=== PATIENT | female | born 1975 | race American Indian/Alaskan Native ===

== ENCOUNTER 2018-04-13 12:13 | Emergency (ER) | payer OTHER ==
--- NOTE | 2018-04-13 12:34 | Emergency Department Report ---
Blank Doc - Documentation Documentation: This is a 43-year-old female that presents with generalized pain and weakness more then a week. Denies any nausea or vomiting. Denies any other complaints or symptoms. This initial assessment/diagnostic orders/clinical plan/treatment(s) is/are subject to change based on patient's health status, clinical progression and re- assessment by fellow clinical providers in the ED. Further treatment and workup at subsequent clinical providers discretion. Patient/guardians urged not to elope from the ED as their condition may be serious if not clinically assessed and managed. Initial orders include: 1- Patient sent to [facility] for further evaluation and treatment 2- labs 2- ua
[2018-04-13 12:35] VITALS: BP 116/76
[2018-04-13 13:26] LABS: Basophils # (Auto) 0.1 K/mm3 (0.0-0.1); Basophils % (Auto) 1.4 % (0.0-1.8); Eosinophils # (Auto) 0.3 K/mm3 (0.0-0.4); Eosinophils % (Auto) 5.3 % (0.0-4.3); Hematocrit 38.5 % (30.3-42.9); Hemoglobin 13.2 gm/dl (10.1-14.3); Lymphocytes # (Auto) 2.1 K/mm3 (1.2-5.4); Mean Corpuscular HGB Conc 34 % (30-34); Mean Corpuscular Volume 91 fl (79-97); Monocytes # (Auto) 0.4 K/mm3 (0.0-0.8); Monocytes % (Auto) 6.6 % (0.0-7.3); Platelet Count 382 K/mm3 (140-440); Red Blood Count 4.24 M/mm3 (3.65-5.03); Red Cell Distribution Width 13.7 % (13.2-15.2)
[2018-04-13 13:33] LABS: Bacteria,Urine 1+ /HPF (Negative); Bilirubin,Urine NEG (Negative); Blood,Urine LG (Negative); Color,Urine Yellow (Yellow); HCG Qualitative,Urine Negative (Negative); Mucus,Urine FEW /HPF; Protein,Urine <15 mg/dL mg/dL (Negative); Urobilinogen,Urine < 2.0 mg/dL (<2.0)
[2018-04-13 13:53] LABS: Alanine Aminotransferase 14 units/L (7-56); Albumin 3.9 g/dL (3.9-5); BUN/Creatinine Ratio 23; Bilirubin,Direct < 0.2 mg/dL (0-0.2); Blood Urea Nitrogen 9 mg/dL (7-17); Calcium 8.6 mg/dL (8.4-10.2); Hemolysis Index 5
--- NOTE | 2018-04-13 14:07 | Emergency Department Report ---
ED General Adult HPI - General Chief complaint: Abdominal Pain Stated complaint: HEAD/NECK/BACK PAIN Time Seen by Provider: 04/13/18 12:32 Source: patient Mode of arrival: Ambulatory Limitations: No Limitations - History of Present Illness Initial comments: Ms. Mullen is a very pleasant 43 yo female with hx of cervical herniated disc and peptic ulcer disease who presents to ER with request for referral [facility]. She also desires brief relief from head and neck pain which has been presents for several weeks. She had had intermittent LLQ pain with diarrhea/constipation. She has hx of liver lesions. She was forced to move from [place], [place] in search of employment. She was unable to obtain medical care in [place] due to mounting medical bills. -: Gradual, week(s) (several) Location: head, neck, abdomen Severity scale (0 -10): 7 Quality: burning, aching Consistency: constant Improves with: none Worsens with: none Associated Symptoms: denies other symptoms - Related Data Previous Rx's Medication Instructions Recorded Last Taken Type Omeprazole 40 mg PO DAILY 30 Days #30 04/13/18 Unknown Rx capsule. Allergies Allergy/AdvReac Type Severity Reaction Status Date / Time No Known Allergies Allergy Unverified 04/13/18 12:13 ED Review of Systems ROS: Stated complaint: HEAD/NECK/BACK PAIN Other details as noted in HPI Comment: All other systems reviewed and negative Constitutional: malaise. denies: fever Gastrointestinal: abdominal pain Neurological: headache ED Past Medical Hx - Past Medical History Previous Medical History?: Yes Hx Asthma: Yes - Surgical History Past Surgical History?: No - Social History Smoking Status: Current Every Day Smoker Substance Use Type: None - Medications Home Medications: Home Medications Medication Instructions Recorded Confirmed Last Taken Type Omeprazole 40 mg PO DAILY 30 Days #30 04/13/18 Unknown Rx capsule. ED Physical Exam - General Limitations: No Limitations General appearance: alert, in no apparent distress - Head Head exam: Present: atraumatic, normocephalic - Eye Eye exam: Present: normal appearance - ENT ENT exam: Present: mucous membranes moist - Neck Neck exam: Present: normal inspection, full ROM. Absent: tenderness, men ingismus - Respiratory Respiratory exam: Present: normal lung sounds bilaterally. Absent: respiratory distress, wheezes, rales - Cardiovascular Cardiovascular Exam: Present: regular rate, normal rhythm, normal heart sounds. Absent: systolic murmur, diastolic murmur, rubs, gallop - GI/Abdominal GI/Abdominal exam: Present: soft, normal bowel sounds. Absent: distended, tenderness, guarding, rebound - Extremities Exam Extremities exam: Present: normal inspection - Back Exam Back exam: Present: normal inspection - Neurological Exam Neurological exam: Present: alert, oriented X3 - Psychiatric Psychiatric exam: Present: normal affect, normal mood - Skin Skin exam: Present: warm, dry, intact, normal color. Absent: rash ED Course Vital Signs 04/13/18 04/13/18 12:32 14:01 Temperature 98.6 F Pulse Rate 74 Respiratory 16 17 Rate Blood Pressure 116/76 [Left] O2 Sat by Pulse 100 Oximetry ED Medical Decision Making - Lab Data Result diagrams: 04/13/18 13:11 04/13/18 13:11 Laboratory Results - last 24 hr 04/13/18 04/13/18 04/13/18 13:11 13:11 13:16 WBC 5.7 RBC 4.24 Hgb 13.2 Hct 38.5 MCV 91 MCH 31 MCHC 34 RDW 13.7 Plt Count 382 Lymph % (Auto) 37.0 H [place] % (Auto) 6.6 Eos % (Auto) 5.3 H Baso % (Auto) 1.4 Lymph # 2.1 [place] # 0.4 Eos # 0.3 Baso # 0.1 Seg Neutrophils % 49.7 Seg Neutrophils # 2.8 Sodium 140 Potassium 3.9 Chloride 104.4 Carbon Dioxide 25 Anion Gap 15 BUN 9 Creatinine 0.4 L Estimated GFR > 60 BUN/Creatinine Ratio 23 Glucose 83 Calcium 8.6 Total Bilirubin 0.20 Direct Bilirubin < 0.2 AST 14 ALT 14 Alkaline Phosphatase 52 Total Protein 6.8 Albumin 3.9 Albumin/Globulin Ratio 1.3 Urine Color Yellow Urine Turbidity Clear Urine pH 5.0 Ur Specific [place] 1.012 Urine Protein <15 mg/dl Urine Glucose (UA) Neg Urine Ketones Neg Urine Blood Lg Urine Nitrite Neg Urine Bilirubin Neg Urine Urobilinogen < 2.0 Ur Leukocyte Esterase Neg Urine WBC (Auto) 3.0 Urine RBC (Auto) 4.0 U Epithel Cells (Auto) 1.0 Urine Bacteria (Auto) 1+ Urine Mucus Few Urine HCG, Qual Negative - Medical Decision Making Ms. Mullen presents with known medical conditions of PUD and cervical disc h erniation with related pain. No indication of acute emergent condition. She politely requested referral to local [facility]. She currently works at [employer] job without benefits. given IM toradol and one tab [place] today in ED Prescribed omeprazole Critical care attestation.: If time is entered above; I have spent that time in minutes in the direct care of this critically ill patient, excluding procedure time. ED Disposition Clinical Impression: Cervical disc disease, PUD (peptic ulcer disease) Disposition: TO HOME OR SELFCARE Is pt being admited?: No Does the pt Need Aspirin: No Condition: Stable Instructions: Abdominal Pain (ED), Cervical Disc Herniation (ED) Prescriptions: Omeprazole 40 mg PO DAILY 30 Days #30 capsule. Referrals: [facility] [Outside] - 3-5 Days [facility] [Outside] - 3-5 Days [facility] [Outside] - 3-5 Days [facility] [Outside] - 3-5 Days [facility] [Outside] - 3-5 Days
[2018-04-13] MEDS ORDERED: TORADOL IM ONE (14:21)
[2018-04-13] MEDS ORDERED: NORCO 5/325 PO ONE (14:21)
== END 2018-04-13 14:37 | disposition home or self-care (01) ==
LOC: ED 12:13
DX: M50.90 Cervical disc disorder, unspecified, unspecified cervical region (principal); F17.200 Nicotine dependence, unspecified, uncomplicated; K27.9 Peptic ulcer, site unspecified, unspecified as acute or chronic, without hemorrhage or perforation; J45.909 Unspecified asthma, uncomplicated; R51 Headache
CPT/HCPCS: 36415; 80048; 80076; 81001; 81025; 85025; 96372; 99283; J1885